=== PATIENT | female | born 1965 | race Caucasian/White ===

== ENCOUNTER 2016-08-20 06:05 | Day surgery (SDC) | payer BC ==
[~2016-08-20] VITALS: Ht 160 cm; Wt 60.5 kg
[~2016-08-20 06:05] MED LIST: AMLO-147 PO; ATOR40TA68 PO; ESOM20CA PO; FERR325C PO; GABA300C16 PO; HYDR-3612 PO; IBUP-1542 PO; LISI10TA2 PO; LORA-441 PO; LORA10TA3 PO; MELO-110 PO; OMEP20CA16 PO; PANT40TA4 PO; PROP10TA6 PO; RANI300T PO; SERT-165 PO; TRAZ100T15 PO; VENTOLIN
[2016-08-20 06:38] VITALS: Ht 160 cm; Wt 60.5 kg
[2016-08-20] MEDS ORDERED: CHOL400T10 PO (06:50)
[2016-08-20 07:02] VITALS: BP 149/72; PULSE 59; RESP 12
[2016-08-20] MEDS ORDERED: MIDAZOLAM 1 MG/ML 2 ML INJ ONE (07:34)
[2016-08-20] MEDS ORDERED: FENTAnyl 50 MCG/ML VIAL ONE (07:34)
[2016-08-20 08:00] VITALS: BP 120/70; RESP 20
--- NOTE | 2016-08-20 08:15 | GILP ---
DATE OF PROCEDURE: NAME OF PROCEDURES: Esophagogastroduodenoscopy and biopsy. SURGEON: Amarjit Cota MD PREOPERATIVE DIAGNOSES: 1. Abdominal pain. 2. Chronic heartburn. POSTOPERATIVE DIAGNOSES: 1. Gastroesophageal reflux disease. 2. Gastritis with erosions. 3. Gastric mucosal biopsies were taken for Helicobacter pylori test. INDICATION FOR THE PROCEDURE: Ms. Rhiannon Wei is a 50-year-old female patient who had upper abdominal pain and chronic heartburn, not responding to therapy. The patient was scheduled for endoscopic examination for further evaluation. The procedure and possible complications were well explained to the patient. The patient understood and consented to the procedure. DESCRIPTION OF PROCEDURE: Under the influence of Fentanyl and Versed, the gastroscope was carefully introduced into the esophagus and under direct vision , it was advanced to the stomach and through the pylorus into the duodenal bulb and descending duodenum. FINDINGS: ESOPHAGUS: The patient had gastroesophageal reflux disease. STOMACH: She had gastritis with erosions. Gastric mucosal biopsies were taken for H. pylori test. DUODENUM: Normal. She tolerated the procedure very well and there was no complication from the procedure. At the end of the procedures, she was awake with stable vital signs and she was discharged home to the care of her family. IMPRESSION: 1. Gastroesophageal reflux disease. 2. Gastritis with erosions. 3. Gastric mucosal biopsies were taken for Helicobacter pylori test. PLAN: 1. Nexium 24 HRS p.o. q.a.m. 2. Zantac 300 mg p.o. at bedtime. 3. Await H. pylori test report. Dictated By: AMARJIT ARSHAD/GERSON Conf#: [id number] DID#: [id number]
== END 2016-08-20 09:38 | disposition home or self-care (01) ==
LOC: GIL 06:05
PROVIDERS: ATTEND Internal Medicine Gastroenterology
DX: R10.9 Unspecified abdominal pain (principal); K21.9 Gastro-esophageal reflux disease without esophagitis; K29.60 Other gastritis without bleeding; I10 Essential (primary) hypertension
CPT/HCPCS: 43239; 87081; J2250; J3010; Z7610

== ENCOUNTER 2018-01-23 07:06 | Day surgery (SDC) | END 2018-01-23 12:20 | disposition home or self-care (01) ==